=== PATIENT | male | born 1950 | race Caucasian/White ===

== ENCOUNTER → 2023-12-04 17:19 | Outpatient (REF) | payer MEDICARE, OTHER, SELFPAY | LOC: MRI 17:19 | PROVIDERS: ATTENDING PHYSICIAN Student in an Organized Health Care Education/Training Program; FAMILY PHYSICIAN Family Medicine | DX: M54.2 Cervicalgia (principal) | CPT/HCPCS: 72141 ==

== ENCOUNTER → 2023-12-28 10:44 | Outpatient (REF) | payer MEDICARE, OTHER, SELFPAY ==
[2023-12-28 11:40] LABS: Blood Urea Nitrogen 31 mg/dl (9-20); Calcium 9.9 mg/dl (8.4-10.2); Carbon Dioxide 23 mmol/L (22-30); Chloride 107 mmol/L (98-107); Glucose 112 mg/dl (70-99); Potassium 5.2 mmol/L (3.5-5.1); Sodium 137 mmol/L (135-145); eGFR > 60.00
== END ==
LOC: REG 10:44
PROVIDERS: ATTENDING PHYSICIAN Internal Medicine; FAMILY PHYSICIAN Family Medicine
DX: I25.5 Ischemic cardiomyopathy (principal)
CPT/HCPCS: 36415; 80048

== ENCOUNTER → 2024-01-11 09:34 | Outpatient (REF) | payer MEDICARE, OTHER, SELFPAY ==
[2024-01-11 10:38] LABS: Blood Urea Nitrogen 31 mg/dl (9-20); Calcium 9.6 mg/dl (8.4-10.2); Carbon Dioxide 23 mmol/L (22-30); Chloride 107 mmol/L (98-107); Glucose 145 mg/dl (70-99); Potassium 5.1 mmol/L (3.5-5.1); Sodium 137 mmol/L (135-145); eGFR 48.55
== END ==
LOC: REG 09:34
PROVIDERS: ATTENDING PHYSICIAN Internal Medicine; FAMILY PHYSICIAN Family Medicine
DX: I25.5 Ischemic cardiomyopathy (principal)
CPT/HCPCS: 36415; 80048

== ENCOUNTER 2024-05-03 19:40 | Emergency (ER) | payer MEDICARE, OTHER, SELFPAY ==
[2024-05-03 19:41] VITALS: BP 145/78
--- NOTE | 2024-05-03 20:29 | ED.GENMED ---
History of Present Illness
General
Chief Complaint: Back Pain
Time Seen by Provider: 05/03/24 20:29
History of Present Illness
History of Present Illness:
HPI: The patient presents with left-sided pleuritic upper back pain that started approximately 8 hours ago. The pain is not necessarily worse with position changes. He was concerned because a couple years ago he had similar symptoms and ended up
requiring several coronary stents. He has no back pain. He has chronic neck pain which is actually bothering him more than the back pain. He did not feel any relief with the Percocet that he took earlier today.
EXAM:
GENERAL: Well appearing in no distress
HEENT: Moist oral mucosa
CARDIOVASCULAR: No murmurs, normal heart rate, regular rhythm, No chest wall tenderness
PULMONARY: No respiratory distress, breath sounds are clear and equal
ABDOMEN: Soft with no peritoneal signs, no tenderness
BACK: There is no significant upper back tenderness
NEUROLOGIC: Excellent strength all extremities, no coordination deficits
PSYCHIATRIC: Appropriate mental status, normal insight and judgement
EXTREMITIES: Nontender, no edema, moves all extremities equally
SKIN: No rash, no lesions
TIME OF INITIAL ENCOUNTER: 8:30 PM
NUMBER AND COMPLEXITY OF PROBLEMS ADDRESSED AT THE ENCOUNTER
� Chronic conditions affecting care: CAD/MN/CABG, high blood pressure, GERD, has had kidney stones
� Acute Exacerbation and/or Progression of Chronic Illness: This is an acute problem
� Differential Diagnosis includes: ACS unlikely, PE, musculoskeletal back pain
AMOUNT AND/OR COMPLEXITY OF DATA TO BE REVIEWED AND ANALYZED
� I performed an independent evaluation of and my interpretation is:
EKG: Sinus 63, leftward axis deviation, inferior and septal Q waves
CT: I personally reviewed CT imaging and agree with radiologist interpretation that there is no central PE
X-rays:
Laboratory Studies: Troponin less than 0.012, BNP 83, creatinine 1.6 but GFR is over 40
Other:
� Review of other/old records: I reviewed cath report from January 2023�he had stent placed to the first diagonal branch
� Clinical information was obtained by an independent historian: I spoke to at bedside
� Prescriptions/Medications Considered but not given:
� Further testing considered but not performed:
RISK OF COMPLICATIONS AND/OR MORBIDITY OR MORTALITY OF PATIENT MANAGEMENT
� Social determinants of health affecting care: Lives at home
� Discussion with other providers:
� Escalation of care including admission/observation vs risk of discharge considered: The patient has had 8 hours of constant symptoms with a negative troponin and EKG which shows old Q waves. No PE noted on workup tonight. He
appears fairly comfortable on reassessment at 10:55 PM. The patient states he has follow-up with Dr. Garland this coming week. I encouraged him to call his office tomorrow. We also used the CBC discharge instructions. The patient denies any chest
pain.
Past History
Past History
ED Past Medical History: CAD and HTN
ED Past Surgical History: Cardiac
Social History
Tobacco: Other (chews tobacco)
Alcohol: None
Drug: None
Personal:
Living: with family
Family History
Family History: Other (nc)
Phy Exam
Physical Exam
Physical Exam:
See HPI
Course
Orders/Labs/Results
Orders:
Orders
05/03/24 19:46
Electrocardiogram (*1) Urgent
Reason for Study: Chest Pain
EKG- Treatment ONCE
05/03/24 20:35
CT Chest Pe Study Urgent
Comment:
Reason For Exam: new pleuritic L CP
05/03/24 20:56
Complete Blood Count/With Diff Urgent
Comprehensive Metabolic Panel Urgent
Magnesium Urgent
NT-proBNP Urgent
Troponin I Urgent
05/03/24 22:06
0.9% Sodium Chloride 1000 ml [Nss] 1,000 ml IV BOLUS
Abnormal Lab Results
05/03/24
20:56
RBC 4.02 L 10^6/uL
(4.70-6.10)
Hgb 12.8 L g/dL
(13.0-18.0)
Hct 36.6 L %
(39.0-52.0)
MCH 31.8 H pg
(27.0-31.0)
Absolute Monos (auto) 0.8 H 10^3/uL
(0.1-0.6)
Monocytes % 9.6 H %
(1.7-9.3)
BUN 29 H mg/dl
(9-20)
Creatinine 1.6 H mg/dL
(0.7-1.3)
Magnesium 1.3 L mg/dl
(1.6-2.3)
ALT 57 H U/L
(0-50)
05/03/24 20:56
05/03/24 20:56
Vital Signs
Initial and Last Documented VS:
Initial Vital Signs
Temp Pulse Resp BP Pulse Ox
98.1 F 68 18 145/78 97
05/03/24 19:41 05/03/24 19:41 05/03/24 19:41 05/03/24 19:41 05/03/24 19:41
Last Documented Vital Signs
Temp Pulse Resp BP Pulse Ox
98.1 F 66 25 110/55 97
05/03/24 19:41 05/03/24 22:15 05/03/24 22:15 05/03/24 22:00 05/03/24 22:15
*Critical Care Note
Total Time (30-74mins, 75-104mins- exclusive of procedures): Not Applicable
ED Attending Note
-
Portions of this chart may have been created with voice recognition software.� Occasional wrong word or��sound alike� substitutions may have occurred due to the inherent limitations of voice recognition software.
Discharge Plan
Departure
Patient Disposition: Home (Routine Discharge)
Date of Disposition: 05/03/24
Time of Disposition: 23:00
Patient with high blood pressure during this ER visit?: Yes
Discharge Problem:
Back pain
Instructions: Upper Back Pain (DC), Chest Pain CBC Follow Up, BLOOD PRESSURE
Prescriptions:
No Action
aspirin 81 MG tablet,delayed release (DR/EC)
81 mg PO HS
oxycodone-acetaminophen 5 MG/325 MG tablet
1 tab PO Q6HPRN PRN (Reason: SEVERE PAIN)
allopurinol 300 MG tablet
300 mg PO DAILY
metoprolol succinate 50 MG tablet extended release 24 hr
50 mg PO DAILY Qty: 90 5RF
multivitamin Tablet
2 tab PO DAILY
vitamin A-vitamin C-vit E-min Tablet
1 tab PO DAILY
coenzyme Q10 [CoQ-10] 100 mg Capsule
100 mg PO DAILY
rosuvastatin [Crestor] 10 mg Tablet
10 mg PO QPM
icosapent ethyl 1 gram Capsule
2 g PO BID
Entresto 97-103 mg Tablet
1 tab PO BID
clopidogrel [clopidogrel] 75 mg tablet
75 mg PO DAILY Qty: 90 3RF
nitroglycerin [nitroglycerin] 0.4 mg tablet, sublingual
0.4 mg sublingual [id number] PRN (Reason: chest pain) Qty: 25 2RF
Referrals:
Bob Avitia MD [Family Provider] -
Activity Restrictions/Additional Instructions:
The cause of your pain is unclear. Cardiac blood work (troponin) and EKG do not show any signs of heart attack. Your kidney function is slightly impaired with a creatinine of 1.6 (top normal being 1.3). I recommend that you follow with Dr. Garland.
CAT scan shows no sign of blood clot or any other explanation for your pain however your pain could be related to a musculoskeletal etiology of the back. Tylenol would be safest and you could also try Salonpas. Return here if worse.
Interventions
Interventions:
*Risk Screen - Suicide Last Done: 05/03/24 19:41
*General Assessment Last Done: 05/03/24 19:41
*Neglect/Abuse Screening Last Done: 05/03/24 19:41
ED- Fall Risk Assessment Last Done: 05/03/24 21:10
ED-Musculoskeletal Assessment Last Done: 05/03/24 21:10
Discharge Date and Time
Print Language: [id number]
[2024-05-03 20:48] VITALS: BP 120/66
[2024-05-03 20:55] VITALS: BMI 31.1
[2024-05-03 21:00] VITALS: BP 104/56
[2024-05-03 21:04] LABS: % Basophils 0.9 % (0-2); % Eosinophils 4.4 % (0-6); % Immature Granulocytes 0.1 % (0-0.5); % Lymphocytes 36.1 % (20.5-51.1); % Monocytes 9.6 % (1.7-9.3); % Neutrophils 48.9 % (42.2-75.2); Absolute Basophils 0.1 10^3/uL (0-0.2); Absolute Eosinophils 0.4 10^3/uL (0-0.7); Absolute Lymphocytes 2.9 10^3/uL (1.2-3.4); Absolute Monocytes 0.8 10^3/uL (0.1-0.6); Absolute Neutrophils 3.9 10^3/uL (1.4-6.5); Hematocrit 36.6 % (39.0-52.0); Hemoglobin 12.8 g/dL (13.0-18.0); Mean Corpuscular Hgb 31.8 pg (27.0-31.0); Mean Platelet Volume 9.2 fL (7.4-10.4); Nucleated Red Blood Cells % 0 % (-); Platelet Count 213 10^3/uL (130-400); Red Blood Cell Count 4.02 10^6/uL (4.70-6.10); Red Cell Dist. Width 13.7 % (11.5-14.5)
[2024-05-03 21:34] LABS: ALT (SGPT) 57 U/L (0-50); AST (SGOT) 52 U/L (17-59); Albumin 4.3 g/dl (3.5-5.0); Alkaline Phosphatase 87 U/L (38-126); Blood Urea Nitrogen 29 mg/dl (9-20); Calcium 9.2 mg/dl (8.4-10.2); Carbon Dioxide 28 mmol/L (22-30); Chloride 105 mmol/L (98-107); Estimated Creatinine Clearance 48 ml/min; Glucose 97 mg/dl (70-99); Magnesium 1.3 mg/dl (1.6-2.3); Potassium 4.5 mmol/L (3.5-5.1); Sodium 138 mmol/L (135-145); Total Bilirubin 0.3 mg/dl (0.2-1.3); Total Protein 6.7 g/dl (6.3-8.2); eGFR 44.93
[2024-05-03 21:35] LABS: NT-proBNP 83.2 pg/ml; Troponin I < 0.012 ng/ml
[2024-05-03 22:00] VITALS: BP 110/55
[2024-05-03] MEDS: NSS 1000 IV (22:09)
[2024-05-03 23:39] VITALS: BP 141/62
== END 2024-05-03 23:40 | disposition home or self-care (01) ==
LOC: EMR 19:40
PROVIDERS: EMERGENCY PHYSICIAN Emergency Medicine; FAMILY PHYSICIAN Family Medicine
DX: M54.6 Pain in thoracic spine (principal); I25.10 Atherosclerotic heart disease of native coronary artery without angina pectoris; I10 Essential (primary) hypertension; Z95.5 Presence of coronary angioplasty implant and graft
CPT/HCPCS: 99284; 96360; 71275; 80053; 83735; 83880; 84484; 85025; 93005; Q9967

== ENCOUNTER → 2024-05-06 09:12 | Outpatient (REF) | payer MEDICARE, OTHER, SELFPAY ==
[2024-05-06 12:37] LABS: Blood Urea Nitrogen 15 mg/dl (9-20); Calcium 9.1 mg/dl (8.4-10.2); Carbon Dioxide 23 mmol/L (22-30); Chloride 109 mmol/L (98-107); Glucose 142 mg/dl (70-99); Potassium 4.4 mmol/L (3.5-5.1); Sodium 137 mmol/L (135-145); eGFR > 60.00
== END ==
LOC: HWLAB 09:12
PROVIDERS: ATTENDING PHYSICIAN Nurse Practitioner Gerontology; FAMILY PHYSICIAN Family Medicine
DX: N17.9 Acute kidney failure, unspecified (principal)
CPT/HCPCS: 36415; 80048

== ENCOUNTER → 2024-05-10 09:00 | Outpatient (REF) | payer MEDICARE, OTHER, SELFPAY | LOC: RCS 09:00 | PROVIDERS: ATTENDING PHYSICIAN Internal Medicine; FAMILY PHYSICIAN Family Medicine | DX: I25.5 Ischemic cardiomyopathy (principal); I25.10 Atherosclerotic heart disease of native coronary artery without angina pectoris; I25.810 Atherosclerosis of coronary artery bypass graft(s) without angina pectoris; I21.4 Non-ST elevation (NSTEMI) myocardial infarction; I34.0 Nonrheumatic mitral (valve) insufficiency; I36.1 Nonrheumatic tricuspid (valve) insufficiency | CPT/HCPCS: 93306 ==

== ENCOUNTER → 2024-06-27 07:11 | Outpatient (REF) | payer MEDICARE, OTHER, SELFPAY ==
[2024-06-27 09:38] LABS: ALT (SGPT) 48 U/L (0-50); AST (SGOT) 48 U/L (17-59); Albumin 4.4 g/dl (3.5-5.0); Alkaline Phosphatase 55 U/L (38-126); Blood Urea Nitrogen 26 mg/dl (9-20); Calcium 10.8 mg/dl (8.4-10.2); Carbon Dioxide 25 mmol/L (22-30); Chloride 103 mmol/L (98-107); Glucose 141 mg/dl (70-99); HDL Cholesterol 40 mg/dl; LDL Cholesterol, Calculated 70 mg/dl; Potassium 4.9 mmol/L (3.5-5.1); Sodium 141 mmol/L (135-145); Total Bilirubin 0.5 mg/dl (0.2-1.3); Total Cholesterol 142 mg/dl (50-199); Triglyceride 162 mg/dl (10-149); Uric Acid 4.9 mg/dl (3.5-8.5); Very Low Density Lipoprotein 32 mg/dl (0-30); eGFR > 60.00
[2024-06-27 09:40] LABS: % Basophils 0.6 % (0-2); % Eosinophils 4.2 % (0-6); % Immature Granulocytes 0.3 % (0-0.5); % Lymphocytes 39.1 % (20.5-51.1); % Monocytes 6.7 % (1.7-9.3); % Neutrophils 49.1 % (42.2-75.2); Absolute Basophils 0.1 10^3/uL (0-0.2); Absolute Eosinophils 0.4 10^3/uL (0-0.7); Absolute Lymphocytes 3.6 10^3/uL (1.2-3.4); Absolute Monocytes 0.6 10^3/uL (0.1-0.6); Absolute Neutrophils 4.6 10^3/uL (1.4-6.5); Hematocrit 41.9 % (39.0-52.0); Hemoglobin 14.2 g/dL (13.0-18.0); Mean Corp Hgb Conc. 33.9 g/dL (33.0-37.0); Mean Corpuscular Volume 91.5 fL (80.0-94.0); Nucleated Red Blood Cells % 0 % (-); Platelet Count 230 10^3/uL (130-400); Red Blood Cell Count 4.58 10^6/uL (4.70-6.10); Red Cell Dist. Width 13.6 % (11.5-14.5); White Blood Cell Count 9.3 10^3/uL (4.8-10.8)
[2024-06-27 10:06] LABS: PSA, Total - Screen 0.42 ng/ml (0.0-4.0)
== END ==
LOC: HWLAB 07:11
PROVIDERS: ATTENDING PHYSICIAN Family Medicine
DX: E78.5 Hyperlipidemia, unspecified (principal); G89.4 Chronic pain syndrome; M10.9 Gout, unspecified; I25.10 Atherosclerotic heart disease of native coronary artery without angina pectoris; F11.90 Opioid use, unspecified, uncomplicated; I10 Essential (primary) hypertension; Z12.5 Encounter for screening for malignant neoplasm of prostate
CPT/HCPCS: 36415; 80053; 80061; 84550; 85025; G0103

== ENCOUNTER → 2025-01-31 07:36 | Outpatient (REF) | payer MEDICARE, OTHER, SELFPAY ==
[2025-01-31 10:37] LABS: ALT (SGPT) 32 U/L (0-50); AST (SGOT) 34 U/L (17-59); Albumin 4.2 g/dl (3.5-5.0); Alkaline Phosphatase 65 U/L (38-126); Blood Urea Nitrogen 15 mg/dl (9-20); Carbon Dioxide 27 mmol/L (22-30); Chloride 107 mmol/L (98-107); Glucose 139 mg/dl (70-99); HDL Cholesterol 33 mg/dl; LDL Cholesterol, Calculated 57 mg/dl; Potassium 4.5 mmol/L (3.5-5.1); Sodium 144 mmol/L (135-145); Total Bilirubin 0.6 mg/dl (0.2-1.3); Total Cholesterol 118 mg/dl (50-199); Total Protein 6.5 g/dl (6.3-8.2); Triglyceride 143 mg/dl (10-149); Very Low Density Lipoprotein 28 mg/dl (0-30); eGFR > 60.00
[2025-01-31 10:54] LABS: Glycohemoglobin (HgbA1c) 5.9 % (4.0-5.6)
== END ==
LOC: HWLAB 07:36
PROVIDERS: ATTENDING PHYSICIAN Internal Medicine; FAMILY PHYSICIAN Family Medicine
DX: I25.10 Atherosclerotic heart disease of native coronary artery without angina pectoris (principal); R73.03 Prediabetes
CPT/HCPCS: 36415; 80053; 80061; 83036

== ENCOUNTER → 2025-07-12 07:09 | Outpatient (REF) | payer MEDICARE, OTHER, SELFPAY ==
[2025-07-12 10:52] LABS: ALT (SGPT) 28 U/L (0-50); AST (SGOT) 33 U/L (17-59); Albumin 4.1 g/dl (3.5-5.0); Alkaline Phosphatase 78 U/L (38-126); Blood Urea Nitrogen 12 mg/dl (9-20); Calcium 9.0 mg/dl (8.4-10.2); Carbon Dioxide 28 mmol/L (22-30); Chloride 107 mmol/L (98-107); Glucose 130 mg/dl (70-99); HDL Cholesterol 47 mg/dl; LDL Cholesterol, Calculated 59 mg/dl; Potassium 4.3 mmol/L (3.5-5.1); Sodium 141 mmol/L (135-145); Total Protein 6.6 g/dl (6.3-8.2); Very Low Density Lipoprotein 11 mg/dl (0-30); eGFR > 60.00
[2025-07-12 11:11] LABS: PSA, Total - Screen 0.37 ng/ml (0.0-4.0)
[2025-07-12 11:19] LABS: Glycohemoglobin (HgbA1c) 5.9 % (4.0-5.6)
== END ==
LOC: HWLAB 07:09
PROVIDERS: ATTENDING PHYSICIAN Family Medicine; REFERRING PHYSICIAN Internal Medicine
DX: R73.9 Hyperglycemia, unspecified (principal); I25.810 Atherosclerosis of coronary artery bypass graft(s) without angina pectoris; I10 Essential (primary) hypertension; Z12.5 Encounter for screening for malignant neoplasm of prostate
CPT/HCPCS: 36415; 80053; 80061; 83036; G0103